=== PATIENT | male | born 2000 | race Caucasian/White ===

== ENCOUNTER 2022-01-07 01:53 | Emergency (ER) | payer OTHER ==
[~2022-01-07] VITALS: Ht 188 cm; Wt 75.0 kg
--- NOTE | 2022-01-07 02:31 | ED Head Injury ---
General Chief Complaint: Laceration Stated Complaint: R EYE LAC,BLEEDING Source: patient Exam Limitations: no limitations History of Present Illness Date Seen by Provider: Jan 07, 2022 Time Seen by Provider: 02:08 Initial Comments Patient to the ER by private conveyance from [place] [employer] where he was helping tear down and pulled a T post out and struck himself in the forehead above the right eye causing a small laceration in the superior portion of his right upper eyelid. He thinks he had a tetanus vaccine about 4 years ago. He has no other significant medical history. No loss of consciousness nausea or vomiting. Allergies and Home Medications Allergies Coded Allergies: No Known Drug Allergies (Unverified , 01/07/22) Patient Home Medication List Home Medication List Reviewed: Yes Review of Systems Review of Systems Constitutional: No chills, No diaphoresis Eyes: See HPI (Negative for double vision); Denies Blindness, Denies Blurred Vision Ears, Nose, Mouth, Throat: denies ear pain, denies ear discharge Respiratory: No cough, No short of breath All Other Systems Reviewed Negative Unless Noted: Yes Past Jfhdmcl-Ekwyqo-Sswbap Hx Patient Social History Tobacco Use?: No Substance use?: No Alcohol Use?: Yes Alcohol Frequency: Once in a while Immunizations Up To Date 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 oz. kg; BMI Method: General Appearance: WD/WN, no apparent distress HEENT: PERRL/EOMI (4 mm symmetric reactive), TMs normal, pharynx normal, other (1.5 cm linear laceration into the subcutaneous tissue above the right eyelid.) Neck: full range of motion, supple Cardiovascular: normal peripheral pulses, regular rate, rhythm Respiratory: no respiratory distress, no accessory muscle use Psychiatric: alert, oriented x 3 Crainal Nerves: normal hearing, normal speech, PERRL Banner Coma Score Best Eye Response: (4) Open Spontaneously Best Verbal Response: (5) Oriented Best Motor Response: (6) Obeys Commands Banner Total: 15 Procedures/Interventions Wound Location: Face Other Wound Location Above the right eyelid Wound Length (cm): 1.5 Wound's Depth, Shape: linear, sub Q Wound Explored: no foreign body removed Irrigated w/ Saline (ccs): 50 Betadine Prep?: Yes (Alcohol and chlorhexidine) Anesthesia: 1% Lidocaine Volume Anesthetic (ccs): 1 Wound Debrided: minimal Suture: Prolene Suture Size: 6-0 Number of Sutures: 4 Layer Closure?: 1 Number Deep Layer Sutures: 0 Sterile Dressing Applied?: No Progress/Results/Core Measures Results/Orders Vital Signs/I&O 01/07/22 02:05 Temp 36.8 Pulse 70 Resp 18 B/P (MAP) 143/86 (105) Pulse Ox 99 O2 Delivery Room Air Progress Progress Note : Time: 02:28 Progress Note We will give him a work note and a handout for concussion. Closed the wound using simple interrupted sutures. Return precautions. Departure Impression Primary Impression: Concussion Qualified Codes: S06.0X0A - Concussion without loss of consciousness, initial encounter Additional Impression: Laceration, eyelid, right Qualified Codes: S01.111A - Laceration without foreign body of right eyelid and periocular area, initial encounter Disposition: 01 HOME, SELF-CARE Condition: Stable Departure-Patient Inst. Decision time for Depature: 02:29 Referrals: NO,LOCAL PHYSICIAN (PCP) Primary Care Physician AD SOLER MD Patient Instructions: Laceration Repair With Stitches (DC), Concussion, Adult ED Add. Discharge Instructions: Please review the handout on concussion. I suggest for the next 1 to 2 days you stick to a low stimuli environment and get plenty of rest. The cure for concussion is to rest your brain such as sleeping. Tylenol 1000 mg every 8 hours as needed for pain. Ibuprofen 800 mg every 8 hours needed for pain. Ice 20 minutes on every 2 hours while awake for the first 2 to 3 days to reduce swelling and pain. Symptoms of concussion include headache, difficulty concentrating, irritability, sleepiness, nausea or difficulty with balance. If you are experiencing the symptoms then you need to go take a nap. You can have your primary care doctor or student health at [facility] assist you in managing concussion symptoms. You may return to the ER for suture removal in approximately 7 days. If you begin to have increasing redness, swelling, fever or other worrisome symptoms of infection and you need to follow-up immediately with the ER or your student health. All discharge instructions reviewed with patient and/or family. Voiced u nderstanding. Work/School Note: School/Childcare Release Date Seen in the Emergency Department: Jan 07, 2022 Time Dismissed from Emergency Department: 02:31 Return to School: Jan 09, 2022 Restrictions: No Restrictions Copy Copies To 1: AD SOLER MD, TITUS J Jan 07, 2022 02:31
[2022-01-07 02:37] VITALS: BP 143/86
== END 2022-01-07 02:37 | disposition home or self-care (01) ==
LOC: ER 01:56
DX: S06.0X0A Concussion without loss of consciousness, initial encounter (principal); S01.111A Laceration without foreign body of right eyelid and periocular area, initial encounter; W22.8XXA Striking against or struck by other objects, initial encounter
CPT/HCPCS: 12011

== ENCOUNTER 2022-01-13 10:19 | Emergency (ER) | payer OTHER ==
[~2022-01-13] VITALS: Ht 188 cm; Wt 74.8 kg
[2022-01-13 10:26] VITALS: BP 127/73
== END 2022-01-13 10:32 | disposition home or self-care (01) ==
LOC: EDUNIT# 10:19 → ER 10:22
DX: Z48.02 Encounter for removal of sutures (principal)

== ENCOUNTER 2022-05-27 17:50 | Emergency (ER) | payer OTHER ==
[~2022-05-27] VITALS: Ht 185.4 cm; Wt 72.5 kg
--- NOTE | 2022-05-27 18:51 | ED General ---
General Chief Complaint: Abdominal/GI Problems Stated Complaint: VOMITING Nursing Triage Note: PT AMB TO [facility] WITH COMPLAINTS OF VOMITING X30 HOURS AND A HEADACHE. PT STATES THAT HE IS UNABLE TO KEEP FOOD DOWN. Source of Information: Patient Exam Limitations: No Limitations (JUDITH CANO) History of Present Illness Date Seen by Provider: May 27, 2022 Time Seen by Provider: 18:35 Initial Comments This is a 21yo M with no reported pmhx who presents for vomiting. Patient has been vomiting after food or fluid intake for the past 30 hours. Last attempted food intake was 13JAN at 2200, and he had minimal fluid intake today. He has attempted to eat [employer] with no success, also no recent changes to his regular diet. Pt endorses headache with attempt to take Tylenol but vomited it. Endorses chills and dizziness. No previous occurrence of these symptoms. No alleviating factors. Denies abdominal pain, hematemesis, diarrhea, fever, cough, or any sick contacts. Pt drinks approximately 1 beer per week but had no recent alcohol intake, and denies tobacco, marijuana, or illicit drug use. Timing/Duration: Other (30 Hours) Severity: Moderate Modifying Factors: worse with Eating Associated Systoms: No Chest Pain, No Cough, No Diaphoresis; Fever/Chills (Endorses chills, denies fever), Headaches, Loss of Appetite, Malaise, Nausea/Vomiting; No Shortness of Air, No Weakness (JUDITH CANO) Allergies and Home Medications Allergies Coded Allergies: No Known Drug Allergies (Unverified , 01/07/22) Patient Home Medication List Home Medication List Reviewed: Yes (BRADFORD DIANE MD) Ondansetron (Ondansetron Odt) 4 Mg Tab.rapdis, 4 MG SL Q4H PRN for NAUSEA/VOMITING Prescribed by: BRADFORD PALMER on 05/27/221922 Review of Systems Review of Systems Constitutional: chills; No diaphoresis, No fever; malaise; No weakness Respiratory: no symptoms reported Cardiovascular: no symptoms reported Gastrointestinal: No abdominal pain, No constipation, No diarrhea, No hematemesis; loss of appetite; No melena; nausea, vomiting Genitourinary: no symptoms reported Musculoskeletal: no symptoms reported (JUDITH CANO) Past Jslgymv-Inrgol-Gqlwie Hx Patient Social History Tobacco Use?: No Substance use?: No Alcohol Use?: No Pt feels they are or have been: Unable to obtain (JUDITH CANO) Immunizations Up To Date Influenza Vaccine Up-to-Date: No; Not Current (JUDITH CANO) Physical Exam Vital Signs Vital Signs - First Documented 05/27/22 17:54 Pulse 74 B/P (MAP) 153/70 (97) Pulse Ox 99 O2 Delivery Room Air (BRADFORD DIANE MD) Vital Signs Capillary Refill : (JUDITH CANO) Height, Weight, BMI Height: '" Weight: lbs. oz. kg; 21.00 BMI Method:Actual General Appearance: No Apparent Distress, WD/WN HEENT: Other (Dry tongue and mucous membranes) Respiratory: Chest Non Tender, Lungs Clear, Normal Breath Sounds, No Accessory Muscle Use, No Respiratory Distress Cardiovascular: Regular Rate, Rhythm, No Edema, No Murmur, Normal Peripheral Pulses Gastrointestinal: No Organomegaly, No Pulsatile Mass, Non Tender, Soft, Other (Diminished bowel sounds) Extremity: Normal Capillary Refill, Normal Inspection Neurologic/Psychiatric: Alert, Oriented x3, No Motor/Sensory Deficits, Normal Mood/Affect Skin: Normal Color, Warm/Dry (JUDITH CANO) Procedures/Interventions Suture Size: 6-0 (JUDITH CANO) Progress/Results/Core Measures Suspected Sepsis SIRS Temperature: Pulse: 74 Respiratory Rate: Blood Pressure 153 /70 Mean: 97 (JUDITH CANO) Results/Orders My Orders Orders - BRADFORD DIANE MD Ondansetron Oral Dissolve Tab (Zofran (05/27/22 19:00) (BRADFORD DIANE MD) Medications Given in ED Current Medications Medications Dose Ordered Sig/Chinedu Route Start Time Stop Time Status Last Admin Dose Admin Ondansetron HCl 8 mg ONCE ONCE SL 05/27/22 19:00 05/27/22 19:01 DC 05/27/22 19:00 8 MG (RBADFORD DIANE MD) Vital Signs/I&O 05/27/22 05/27/22 17:54 19:28 Pulse 74 B/P (MAP) 153/70 (97) 127/79 Pulse Ox 99 O2 Delivery Room Air (BRADFORD DIANE MD) Vital Signs/I&O Capillary Refill : (JUDITH CANO) Blood Pressure Mean: 97 Progress Note : Progress Note Patient's nausea improved significantly after sublingual Zofran. He was able to drink 6 to 8 ounces of water without difficulty and without rebound nausea. He was comfortable with discharge at this point. Vital signs were stable and he did not require IV hydration. We did discuss potentially testing for influenza and COVID-19. Since he was not experiencing any other symptoms such as sore throat, fever, myalgia, cough, shortness of air, etc., he declined testing for these viral illnesses. (BRADFORD DIANE MD) Departure Impression Primary Impression: Nausea and vomiting Qualified Codes: R11.2 - Nausea with vomiting, unspecified Disposition: 01 HOME, SELF-CARE Condition: Improved Departure-Patient Inst. Decision time for Depature: 19:21 (BRADFORD DIANE MD) Referrals: NO,LOCAL PHYSICIAN (PCP/Family) Primary Care Physician Patient Instructions: Nausea and Vomiting, Adult ED Add. Discharge Instructions: Start with noncarbonated clear liquids overnight. Clear liquids include sports drinks, water, chicken broth, Jell-O, juices, etc. If your nausea is well controlled in the morning, begin eating bland foods and small quantities such as toast, white rice, crackers, banana, etc. Gradually advance your diet with small quantities of bland food as tolerated. Avoid dairy products or fatty or greasy foods for the first 48 hours. Use Zofran (ondansetron) as prescribed for nausea or vomiting. Return to care if you have worsening symptoms despite following these instructions. All discharge instructions reviewed with patient and/or family. Voiced understanding. Scripts Ondansetron (Ondansetron Odt) 4 Mg Tab.rapdis 4 MG SL Q4H PRN for NAUSEA/VOMITING, #10 TAB Prov: BRADFORD DIANE MD 05/27/22 Medical Student Attestation and Attending Note: I have personally interviewed and examined this patient along with Judith Cano, MS 4. I have reviewed student documentation including history, physical, and assessments. I agree with the documentation except where otherwise noted. Exam: General: Alert, oriented, no acute distress, well developed HEENT: Normocephalic and atraumatic, pasty mucous membrane Heart: Regular rate and rhythm without murmur Lungs: Clear to auscultation bilaterally with normal effort Abdomen: Soft, nontender, nondistended, normal bowel sounds Neuropsych: Alert, oriented, no focal deficits Skin: Warm and dry without rashes (BRADFORD DIANE MD) JUDITH CANO May 27, 2022 18:51 BRADFORD DIANE MD May 27, 2022 19:23
[2022-05-27] MEDS ORDERED: ONDANSETRON 4 MG (ZOFRAN) ORAL DISSOLVE TAB SL ONE (19:00)
[2022-05-27] MEDS ORDERED: ONDA4TAB11 SL (19:23)
[2022-05-27 19:28] VITALS: BP 127/79
== END 2022-05-27 19:28 | disposition home or self-care (01) ==
LOC: EDUNIT# 17:50 → ER 17:50
DX: R11.2 Nausea with vomiting, unspecified (principal)
CPT/HCPCS: 99283